=== PATIENT | female | born 1965 | race Caucasian/White ===

== ENCOUNTER 2018-02-10 06:10 | Day surgery (SDC) | payer OTHER ==
[2018-01-31 15:24] VITALS: BMI 29.2
[2018-02-10] MEDS ORDERED: MIDAZOLAM HCL 2 MG/2 ML SINGLE DOSE VIAL ONE (07:23)
[2018-02-10] MEDS ORDERED: PROPOFOL 20 ML ONE ×2 (07:23)
[2018-02-10] MEDS ORDERED: oxyCODONE HCL 5 MG TABLET PO PRN (08:02)
--- NOTE | 2018-02-10 08:06 | OP ---
Operative Note - Note: Operative Date: 02/10/18 Pre-Operative Diagnosis: Left frozen shoulder Operation: MATTHEW Left shoulder Post-Operative Diagnosis: Same as Pre-op Surgeon: Shon Sams Operative Report Dictated: Yes
--- NOTE | 2018-02-10 08:07 | DS ---
Physical Examination Vital Signs: Vital Signs Temperature 97.7 F 02/10/18 06:49 Pulse Rate 56 L 02/10/18 06:49 Respiratory Rate 18 02/10/18 06:49 Blood Pressure 105/66 02/10/18 06:49 O2 Sat by Pulse Oximetry (%) 97 02/10/18 06:49 Discharge Summary Reason For Visit: ADHESIVE CAPSULITIS LEFT SHOULDER Condition: Good - Instructions Diet, Activity, Other Instructions: Move the shoulder as much as possible over the next few weeks. Start physical therapy within the next 5-7 days. You may take Tylenol 1000 mg three times a day. Do not more than that. You make take Advil 400 mg three times a day as well. Call to schedule a follow up appointment in ONE MONTH. Disposition: HOME - Home Medications Comprehensive Discharge Medication List: Ambulatory Orders Alprazolam [Xanax] 0.25 mg PO DAILY PRN 01/31/18
[2018-02-10] MEDS ORDERED: ONDANSETRON 4 MG/2 ML VIAL ONE (08:22)
[2018-02-10] MEDS ORDERED: ONDANSETRON 4 MG/2 ML VIAL IVPUSH ONE (08:25)
[2018-02-10] MEDS ORDERED: oxyCODONE HCL 5 MG TABLET ONE (09:16)
[2018-02-10 09:38] VITALS: BP 117/71; PULSE 55; TEMP 97.9
== END 2018-02-10 09:46 | disposition home or self-care (01) ==
LOC: FASU 06:10
PROVIDERS: ATTEND Orthopaedic Surgery
PROC: 7W07X9Z Osteopathic Treatment of Upper Extremities using Other Method (ICD-10-PCS; principal; 2018-02-10 07:52)
DX: M75.02 Adhesive capsulitis of left shoulder (principal)
CPT/HCPCS: 94760